=== PATIENT | female | born 1995 | race Caucasian/White ===

== ENCOUNTER 2017-11-25 17:00 | Inpatient (IN) | payer OTHER ==
[2017-11-25 18:14] LABS: HEMOGLOBIN 12.6 g/dl (12.0-15.5); MEAN CORPUSCULAR HEMOGLOBIN 31.3 pg (27.0-33.0); MEAN CORPUSCULAR VOLUME 89.3 fl (80.0-96.0); PLATELET COUNT, AUTOMATED 167 10^3/uL (150-450); RED BLOOD COUNT 4.03 10^6/uL (4.00-5.40); RED CELL DISTRIBUTION WIDTH 13.5 % (11.5-14.5); WHITE BLOOD COUNT 9.4 10^3/uL (4.0-10.0)
[2017-11-25] MEDS: LR 1,000 ML IV (18:33)
[2017-11-25] MEDS: OXYTOCIN DRIP 30 UNITS in APPROPRIATE DILUENT 1 EA IV (18:33)
[2017-11-25] MEDS ORDERED: ONDANSETRON 4MG/2ML VIAL (J2405) IV (21:45)
[2017-11-25] MEDS ORDERED: MEASLES,MUMPS,RUBELLA VACCINE INJ (MMR-II) (90707) SC (21:45)
[2017-11-25] MEDS ORDERED: PROMETHAZINE 25 MG TAB PO (21:45)
[2017-11-25] MEDS ORDERED: RHOGAM 300 MCG (1500 IU) INJ (J2790) IM (21:45)
[2017-11-25] MEDS ORDERED: DIBUCAINE 1% OINTMENT 30GM TOP (21:45)
[2017-11-26] MEDS ORDERED: OXYTOCIN 30 UNITS IN 0.9% NaCl 500ML IV BAG (J2590) As Ordered (00:20)
[2017-11-26] MEDS: METHYLERGONOVINE MALEATE 0.2 MG/ML VIAL (J2210) IM (00:55)
[2017-11-26] MEDS: OXYTOCIN DRIP 30 UNITS in APPROPRIATE DILUENT 1 EA IV (04:50)
[2017-11-26] MEDS: ACETAMINOPHEN 500 MG TAB PO (07:13)
[2017-11-26 07:39] LABS: HEMATOCRIT 29.3 % (36.0-47.0); MEAN CORPUSCULAR HGB CONC 34.8 g/dl (32.0-36.5); MEAN CORPUSCULAR VOLUME 89.1 fl (80.0-96.0); PLATELET COUNT, AUTOMATED 133 10^3/uL (150-450); RED BLOOD COUNT 3.29 10^6/uL (4.00-5.40); RED CELL DISTRIBUTION WIDTH 13.2 % (11.5-14.5); WHITE BLOOD COUNT 17.2 10^3/uL (4.0-10.0)
[2017-11-26 07:54] LABS: HEMOGLOBIN 10.2 g/dl (12.0-15.5)
[2017-11-26 08:02] LABS: ALBUMIN 2.3 GM/DL (3.2-5.2); ALBUMIN/GLOBULIN RATIO 0.72 (1.00-1.93); ALKALINE PHOSPHATASE 94 U/L (45-117); ALT/SGPT 13 U/L (12-78); ANION GAP 11 MEQ/L (8-16); AST/SGOT 27 U/L (7-37); BILIRUBIN,TOTAL 0.2 MG/DL (0.2-1.0); BLOOD UREA NITROGEN 9 MG/DL (7-18); CALCIUM LEVEL 7.8 MG/DL (8.5-10.1); CARBON DIOXIDE LEVEL 23 MEQ/L (21-32); CHLORIDE LEVEL 109 MEQ/L (98-107); CREATININE FOR GFR 0.62 MG/DL (0.55-1.30); GLOMERULAR FILTRATION RATE > 60.0 (>60); GLUCOSE, FASTING 105 MG/DL (70-100); LDH LACTATE DEHYDROGENASE 279 U/L (84-246); POTASSIUM SERUM 3.8 MEQ/L (3.5-5.1); SODIUM LEVEL 143 MEQ/L (136-145); TOTAL PROTEIN 5.5 GM/DL (6.4-8.2); URIC ACID 5.1 MG/DL (2.6-6.0)
[2017-11-26 08:53] LABS: TOTAL PROTEIN,RANDOM URINE 22.2 MG/DL (0.0-12.0)
[2017-11-26] MEDS: DOCUSATE SODIUM 100 MG CAP PO ×2 (09:00→20:44)
[2017-11-26] MEDS: PRENATAL VITAMINS CHEWABLE TABLET PO (09:00)
[2017-11-26] MEDS: IBUPROFEN 800 MG TAB PO (16:37)
[2017-11-27] MEDS: DOCUSATE SODIUM 100 MG CAP PO (08:12)
[2017-11-27] MEDS: PRENATAL VITAMINS CHEWABLE TABLET PO (08:12)
== END 2017-11-27 11:10 | disposition home or self-care (01) | DRG 775 ==
LOC: M LDI 17:00 → M OBS 11-26 00:04
PROVIDERS: Obstetrics & Gynecology
PROC: 10E0XZZ Delivery of Products of Conception, External Approach (ICD-10-PCS; principal; 2017-11-25)
PROC: 3E033VJ Introduction of Other Hormone into Peripheral Vein, Percutaneous Approach (ICD-10-PCS; 2017-11-25)
DX: O48.0 Post-term pregnancy (principal); Z37.0 Single live birth; Z3A.41 41 weeks gestation of pregnancy

== ENCOUNTER 2017-12-17 16:40 | Emergency (ER) | payer OTHER ==
[2017-12-17] MEDS: CEPHALEXIN 500 MG CAP PO (18:02)
== END 2017-12-17 18:06 | disposition home or self-care (01) ==
LOC: M ED 16:40
DX: N61.0 Mastitis without abscess (principal)
CPT/HCPCS: 99282

== ENCOUNTER 2018-05-10 17:36 | Emergency (ER) | payer OTHER ==
[~2018-05-10] VITALS: Ht 165.1 cm; Wt 59.1 kg
[~2018-05-10 17:36] MED LIST: ACET500T15 PO; COLA100C5 PO; DICL250C70 PO; IBUP1TAB7 PO; KEFL500C17 PO; PRENTAB9 PO
[2018-05-10 19:30] LABS: BASO % 0.2 % (0.0-1.0); EOS % 0.2 % (0.0-3.0); HEMATOCRIT 38.4 % (36.0-47.0); HEMOGLOBIN 12.5 g/dl (12.0-15.5); LYMPH # 1.6 10^3/uL (1.5-6.5); LYMPH % 14.6 % (24.0-44.0); MEAN CORPUSCULAR HGB CONC 32.6 g/dl (32.0-36.5); MEAN CORPUSCULAR VOLUME 85.9 fl (80.0-96.0); MONO # 0.4 10^3/uL (0.0-0.8); MONO % 3.4 % (0.0-5.0); NEUTROPHILS # 8.7 10^3/uL (1.8-7.7); NEUTROPHILS % 81.3 % (36.0-66.0); PLATELET COUNT, AUTOMATED 207 10^3/uL (150-450); RED BLOOD COUNT 4.47 10^6/uL (4.00-5.40); WHITE BLOOD COUNT 10.7 10^3/uL (4.0-10.0)
--- NOTE | 2018-05-10 19:48 | REPVR ---
EXAM: US First Trimester, Transabdominal EXAM DATE/TIME: 05/10/2018 6:29 PM CLINICAL HISTORY: 22 years old, female; Signs and symptoms; Lmp or gestational age (in weeks): 6; Antepartum complications; Bleeding; ; Additional info: Vaginal bleeding TECHNIQUE: Real-time transabdominal obstetrical ultrasound of the maternal pelvis and a first trimester , less than 14 weeks 0 days, with image documentation. COMPARISON: No relevant prior studies available. FINDINGS: GESTATION: Gestation: Single intrauterine gestation. Heart rate: 123 beats per minute. Placenta: Unremarkable. No subchorionic bleed. Amniotic fluid: Amniotic and chorionic fluid are normal for gestational age. BIOMETRY: Estimated gestational age: The mean sac diameter is 1.9 cm corresponding to gestational age of 6 weeks 2 days. The crown-rump length of the pole is 0.5 cm corresponding to a gestational age of 6 weeks 1 day. The average ultrasound age is 6 weeks one day with an estimated date of delivery of 01/02/19. MATERNAL: Uterus: The uterus measures 10.4 x 5.9 cm. Cervix: Unremarkable. Right adnexa: The right ovary measures 2.9 x 0.8 x 1.1 cm. Left adnexa: The left ovary measures 2.6 x 2.2 x 2.1 cm and contains a 1.5 cm complex cyst, likely a corpus luteal cyst. Intraperitoneal: No intraperitoneal free fluid. IMPRESSION: Single live intrauterine with a gestational age of 6 weeks and 1 day by ultrasound. Electronically signed by: Prudence Larry On 05/10/2018 19:47:53 PM
[2018-05-10 20:19] LABS: APPEARANCE, URINE CLEAR (CLEAR); BACTERIA, URINE AUTO NEGATIVE (NEGATIVE); BILIRUBIN, URINE AUTO NEGATIVE (NEGATIVE); BLOOD, URINE BLOOD 1+ (NEGATIVE); COLOR, URINE STRAW (YELLOW); GLUCOSE, URINE (UA) AUTO NEGATIVE (NEGATIVE); KETONE, URINE AUTO 1+ mg/dL (NEGATIVE); LEUKOCYTE ESTERASE, URINE AUTO NEGATIVE (NEGATIVE); NITRITE, URINE AUTO NEGATIVE (NEGATIVE); PROTEIN, URINE AUTO NEGATIVE (NEGATIVE); RBC, URINE AUTO 3 /HPF (0-3); SPECIFIC GRAVITY URINE AUTO 1.009 (1.002-1.035); SQUAMOUS EPITHELIAL CELL UR AU 0 /HPF (0-6); UROBILINOGEN, URINE AUTO 0.2 mg/dL (0.0-2.0); WBC, URINE AUTO 1 /HPF (0-3)
[2018-05-10 20:31] VITALS: BP 105/51
== END 2018-05-10 20:31 | disposition home or self-care (01) ==
LOC: M ED 17:36
DX: O20.9 Hemorrhage in early pregnancy, unspecified (principal); Z3A.01 Less than 8 weeks gestation of pregnancy

== ENCOUNTER 2018-10-04 09:36 | Outpatient (CLI) | payer OTHER ==
[~2018-10-04] VITALS: Ht 165.1 cm; Wt 70.1 kg
[~2018-10-04 09:36] MED LIST changes: +PREN27TA3 PO
[2018-10-04 09:55] VITALS: BP 139/78
[2018-10-04 10:40] LABS: APPEARANCE, URINE CLOUDY (CLEAR); BACTERIA, URINE AUTO 2+ (NEGATIVE); BILIRUBIN, URINE AUTO NEGATIVE (NEGATIVE); BLOOD, URINE BLOOD NEGATIVE (NEGATIVE); COLOR, URINE YELLOW (YELLOW); GLUCOSE, URINE (UA) AUTO NEGATIVE (NEGATIVE); KETONE, URINE AUTO NEGATIVE (NEGATIVE); LEUKOCYTE ESTERASE, URINE AUTO 3+ (NEGATIVE); NITRITE, URINE AUTO NEGATIVE (NEGATIVE); PROTEIN, URINE AUTO NEGATIVE (NEGATIVE); RBC, URINE AUTO 2 /HPF (0-3); SPECIFIC GRAVITY URINE AUTO 1.011 (1.002-1.035); SQUAMOUS EPITHELIAL CELL UR AU 27 /HPF (0-6); UROBILINOGEN, URINE AUTO 0.2 mg/dL (0.0-2.0); WBC, URINE AUTO 10 /HPF (0-3)
[2018-10-04 11:32] LABS: APPEARANCE, URINE CLEAR (CLEAR); BACTERIA, URINE AUTO NEGATIVE (NEGATIVE); BILIRUBIN, URINE AUTO NEGATIVE (NEGATIVE); BLOOD, URINE BLOOD NEGATIVE (NEGATIVE); COLOR, URINE STRAW (YELLOW); GLUCOSE, URINE (UA) AUTO NEGATIVE (NEGATIVE); KETONE, URINE AUTO NEGATIVE (NEGATIVE); LEUKOCYTE ESTERASE, URINE AUTO NEGATIVE (NEGATIVE); NITRITE, URINE AUTO NEGATIVE (NEGATIVE); PROTEIN, URINE AUTO NEGATIVE (NEGATIVE); RBC, URINE AUTO 0 /HPF (0-3); SPECIFIC GRAVITY URINE AUTO 1.004 (1.002-1.035); SQUAMOUS EPITHELIAL CELL UR AU 0 /HPF (0-6); UROBILINOGEN, URINE AUTO 0.2 mg/dL (0.0-2.0); WBC, URINE AUTO 0 /HPF (0-3)
--- NOTE | 2018-10-04 12:18 | IPNPDOC ---
Text Note Date of Service The patient was seen on 10/04/18. NOTE Triage Note Jazmyn is a 22yo with SIUP at 27+wk by 6wk u/s who presents to triage with CC of RUQ pain that is intermittent and "burning" in quality. She notes it comes on randomly, not associated with eating necessarily but sometimes can be worsened by eating. She notes it originally started in her upper right back and then migrated over. No other complaints. No burning with urination, no abnormal vaginal discharge. Feels good movement. Does not feel ctx, no lof, no vaginal bleeding. 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 No e/o UTI or pyelo. Vitals wnl, benign exam. Reassuring status. SCE cl/thick/high Plan: -safe for discharge home -keep next routine scheduled 28wk appt in clinic -continue to hydrate well -return precautions discussed Dr. Alexandria Huff MD A-FIB/CHADSVASC A-FIB History Current/History of A-Fib/PAF?: No Current Oral Anticoagulant The: No VS,Fishbone, I+O VS, Fishbone, I+O Vital Signs Date Time Temp Pulse Resp B/P (MAP) Pulse Ox O2 Delivery O2 Flow Rate FiO2 10/04/18 09:55 98.2 75 18 139/78 (98) Alexandria Huff MD October 04, 2018 12:18
== END 2018-10-04 11:20 | disposition home or self-care (01) ==
LOC: M LDO 09:36
PROVIDERS: ATTEND Obstetrics & Gynecology
DX: O26.893 Other specified pregnancy related conditions, third trimester (principal); R10.11 Right upper quadrant pain; Z3A.27 27 weeks gestation of pregnancy
CPT/HCPCS: 59025; 81001; G0378; G0463

== ENCOUNTER 2018-12-10 04:28 | Inpatient (IN) | payer OTHER ==
[~2018-12-10] VITALS: Ht 165.1 cm; Wt 72.7 kg
[2018-12-10] VITALS (10 sets, daily range): BP systolic 106–143; BP diastolic 60–93
[2018-12-10] MEDS ORDERED: OXYTOCIN 30 UNITS IN 0.9% NaCl 500ML IV BAG (J2590) As Ordered ONE (04:51)
[2018-12-10] MEDS ORDERED: PENICILLIN G POTASSIUM IV 5 MU in D5W MINI-BAG PLUS 100 ML IV STA (04:55)
[2018-12-10] MEDS ORDERED: LACTATED RINGER'S 1000 ML IV STA (04:55)
[2018-12-10] MEDS ORDERED: OXYTOCIN DRIP 30 UNITS in IV 1 EA IV SCH (05:21)
[2018-12-10] MEDS ORDERED: RHOGAM 300 MCG (1500 IU) INJ (J2790) IM SCH (05:30)
[2018-12-10] MEDS ORDERED: MEASLES,MUMPS,RUBELLA VACCINE INJ (MMR-II) (90707) SC SCH (05:30)
[2018-12-10] MEDS ORDERED: DIBUCAINE 1% OINTMENT 30GM TOP PRN (05:30)
[2018-12-10] MEDS ORDERED: ACETAMINOPHEN TAB 650MG DOSE (2X325MG) PO PRN (05:30)
[2018-12-10] MEDS ORDERED: PROMETHAZINE 25 MG TAB PO PRN (05:30)
[2018-12-10] MEDS ORDERED: DOCUSATE SODIUM 100 MG CAP PO PRN (05:30)
[2018-12-10] MEDS ORDERED: IBUPROFEN 600 MG TAB PO PRN (05:30)
[2018-12-10] MEDS ORDERED: ACETAMINOPHEN 500 MG TAB PO PRN (05:30)
--- NOTE | 2018-12-10 05:34 | DNPDOC ---
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 FINDINGS: Viable male , pending weight, Apgars 7/8, clear amniotic fluid DELIVERY SUMMARY: Jazmyn presented to L&D in fulminant labor at 9cm. I was called to the room immediately after her arrival to the unit. She underwent SROM, clear fluid, shortly after IV access was obtained and she felt a strong urge to push. Cervical exam was C/C/+1. The bed was broken down and she was prepped for delivery. PCN for was ordered for GBS UNK but could not be given in time. With excellent maternal pushing effort her delivered. Presentation was direct OP and shoulders delivered transverse followed easily by the remainder of the body. The was dried and stimulated on the field and a bulb suction was used. The cried vigorously and was then placed on the maternal abdomen. The three vessel cord was then clamped and cut by me after appropriate time delay. 3rd stage was completed with gentle traction on the c ord and it was productive of an intact placenta. The uterine fundus was firmed with massage and pitocin was administered IV bolus. inspection of the vagina, cervix, and perineum revealed no lacerations. Sponge, instrument, and needle counts were correct X2. Mother stable when I left the room. DO TAMMI Desir CHRISTOPHER J. DO Dec 10, 2018 05:34
--- NOTE | 2018-12-10 05:37 | HPEPDOC ---
Obstetrical History & Physical General Date of Admission Dec 10, 2018 at 04:46 History of Present Illness Jazmyn presented to L&D at 36+5 weeks gestation by 6+1 week US on 10May2018 in fulminant labor and delivered her shortly after arrival. is uncomplicated. 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 Last delivery ) Type of Delivery: Spontaneous Vaginal Del. 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: No pertinent history Past Medical History Medical History Denies Surgical History: Other (Ear tubes) Family History Significant Family History: No pertinent family hx Social History Marital Status: Family situation: Spouse/partner home Psychosocial History: No pertinent psych hx * Smoker: non-smoker Alcohol: Denies Drugs: denies Imunizations Tdap status: current Influenza Status: current Allergies Coded Allergies: No Known Allergies (Unverified , 11/25/17) Medications Scheduled Pnv,Calcium 72/Iron/Folic Acid ( Vitamin Plus Low Iron) 1 Tab Tab, PO DAILY Physical Examination Physical Examination GENERAL: Alert and oriented times three. ABDOMEN: Gravid and non-tender to touch. FETUS: Is vertex (VTX) by sterile vaginal examination (SVE) EXTREMITIES: No edema. Pertinent Laboratoy Data Blood Type: AB+ RBC Antibody Screen: Positive HIV: Negative Hepatitis B: Negative Hepatitis C: Unknown Rapid Plasma Reagin: Nonreactive Rubella: Immune Varicella: Immune Chlamydia/Gonorrhea: Negative Group B Streptococcus: Unknown Quad Screen Test: Unknown (Had low risk cff DNA genetic screening) Cystic Fibrosis: Positive (FOB tested and negative) Glucose Tolerance Test: 73 Anatomy Ultrasound Placenta Location: Posterior Normal Anatomy: Yes Placenta Previa: No Steroid Therapy Steroid Therapy: No Vaginal Examination Dilation: 9 cm Effacement: 100% Station: +1 Cervical Consistency: Soft Cervical Position: Anterior Presentation: Cephalic presentation Position: Vertex (occiput) Assessment Heart Rate (FHR): 155 Variability: Moderate Accelerations: Positive Decelerations: Variable Tocometer Contractions: Yes Duration: greater than 60 seconds Strength: palpated as strong Assessment/Plan Assessment 23 yo at 36+5 weeks gestation presented in fulminant labor and delivered her shortly after arrival. Plan Patient delivered shortly after arrival before H+P could be completed. See delivery note for details. Neither PCN nor BTMZ could be given in time before delivery. Plan for routine recovery and care after delivery. DO TAMMI Desir CHRISTOPHER J. DO Dec 10, 2018 05:37
[2018-12-10] MEDS: IBUPROFEN 800 MG TAB PO PRN ×3 (05:55→23:19)
[2018-12-10 05:59] LABS: HEMATOCRIT 35.6 % (36.0-47.0); HEMOGLOBIN 11.3 g/dl (12.0-15.5); MEAN CORPUSCULAR HEMOGLOBIN 26.1 pg (27.0-33.0); MEAN CORPUSCULAR HGB CONC 31.7 g/dl (32.0-36.5); MEAN CORPUSCULAR VOLUME 82.2 fl (80.0-96.0); PLATELET COUNT, AUTOMATED 171 10^3/uL (150-450); RED BLOOD COUNT 4.33 10^6/uL (4.00-5.40); WHITE BLOOD COUNT 12.6 10^3/uL (4.0-10.0)
[2018-12-10] MEDS ORDERED: PENICILLIN G POTASSIUM IV 2.5 MU in IV 1 EA IV SCH (09:00)
[2018-12-10] MEDS: PRENATAL VITAMINS CHEWABLE TABLET PO SCH (09:02)
[2018-12-11 06:31] VITALS: BP 116/68
[2018-12-11] MEDS: PRENATAL VITAMINS CHEWABLE TABLET PO SCH (09:22)
[2018-12-11] MEDS ORDERED: IBUP-1022 PO (10:29)
[2018-12-11 18:12] VITALS: BP 114/60
[2018-12-11] MEDS: IBUPROFEN 800 MG TAB PO PRN (20:13)
[2018-12-12 06:30] VITALS: BP 122/77
[2018-12-12] MEDS: PRENATAL VITAMINS CHEWABLE TABLET PO SCH (08:41)
--- NOTE | 2018-12-12 08:57 | DS.PDOC ---
Discharge Summary General Date of Admission Dec 10, 2018 at 04:46 Date of Discharge December 12, 2018 Discharge Summary HOSPITAL COURSE: Ms. Yoo is a 23 yo G3 now P3 who underwent an uncomplicated on 10Dec2018 after being admitted for active labor. Her course was unremarkable. On her day day of discharge she met all appropriate discharge criteria. She was ambulating, voiding, tolerating a regular diet, and had minimal lochia. DISCHARGE MEDICATIONS: Please see below. ALLERGIES: Please see below. PHYSICAL EXAMINATION ON DISCHARGE: VITAL SIGNS: Please see below. GENERAL: AAOX3, sitting up in bed, NAD, pleasant and conversant PSYCH: Affect appropriate LABORATORY DATA: Please see below. ACTIVITY: Pelvic rest DIET: Regular DISCHARGE PLAN: Discharge home DISPOSITION: Discharge home. DISCHARGE INSTRUCTIONS: 1. Pelvic rest for 6 weeks ITEMS TO FOLLOWUP ON ON OUTPATIENT: 1. visit DISCHARGE CONDITION: Stable. TIME SPENT ON DISCHARGE: Greater than 20 minutes. DO Casey Vital Signs/I&Os Vital Signs Date Time Temp Pulse Resp B/P (MAP) Pulse Ox O2 Delivery O2 Flow Rate FiO2 12/12/18 06:30 98.5 67 18 122/77 (92) Discharge Medications Scheduled Pnv,Calcium 72/Iron/Folic Acid ( Vitamin Plus Low Iron) 1 Tab Tab, PO DAILY, (Reported) Scheduled PRN Ibuprofen (Ibuprofen) 600 Mg Tablet, 600 MG PO Q6HP PRN for PAIN SCALE 1-5 Allergies Coded Allergies: No Known Allergies (Unverified , 11/25/17) BIRGIT CADENA DO Dec 12, 2018 08:57
== END 2018-12-12 12:11 | disposition home or self-care (01) | DRG 807 ==
LOC: M LDO 04:28 → M LDI 04:46 → M OBS 08:01
PROVIDERS: ADMIT Obstetrics & Gynecology; ATTEND Obstetrics & Gynecology
PROC: 10E0XZZ Delivery of Products of Conception, External Approach (ICD-10-PCS; principal; 2018-12-10)
DX: O60.14X0 Preterm labor third trimester with preterm delivery third trimester, not applicable or unspecified (principal); Z37.0 Single live birth; Z3A.36 36 weeks gestation of pregnancy; O62.3 Precipitate labor

== ENCOUNTER 2020-09-23 09:52 | Emergency (ER) | payer OTHER ==
[~2020-09-23] VITALS: Ht 165.1 cm; Wt 59.1 kg
[~2020-09-23 09:52] MED LIST changes: +IBUP-1022 PO
[2020-09-23 11:00] LABS: HCG, SERUM QUANTITATIVE 16 MIU/ML
[2020-09-23 11:16] LABS: BLOOD UREA NITROGEN 15 MG/DL (7-18); CALCIUM LEVEL 8.8 MG/DL (8.5-10.1); CARBON DIOXIDE LEVEL 25 MEQ/L (21-32); CHLORIDE LEVEL 109 MEQ/L (98-107); GLOMERULAR FILTRATION RATE > 60.0 (>60); GLUCOSE, FASTING 76 MG/DL (70-100); POTASSIUM SERUM 3.9 MEQ/L (3.5-5.1); SODIUM LEVEL 141 MEQ/L (136-145)
--- NOTE | 2020-09-23 12:38 | REP ---
INDICATION: spotting, positive hcg COMPARISON: None. TECHNIQUE: Transabdominal and transvaginal 1st trimester obstetrical ultrasound with color Doppler evaluation FINDINGS: Anteverted uterus measures 8.0 x 4.8 x 6.3 cm. The endometrial complex measures 10 mm in width without evidence for intrauterine . Bilateral ovaries are normal in appearance and vascularity. Right ovary measures 2.3 x 1.8 x 2.1 cm (RI 0.54) including 2 cm right corpus luteum cyst. Left ovary measures 2.7 x 1.2 x 2.5 cm (RI 0.62). IMPRESSION: No evidence for intrauterine . Differential diagnosis includes early as well as missed . Correlation with serial HCG levels recommended along with repeat ultrasound as necessary. As always, ectopic cannot definitively be excluded. <Electronically signed by Jesus Santiago > 09/23/20 [id number]
[2020-09-23 13:24] LABS: BASO % 0.4 % (0.0-1.0); EOS % 0.4 % (0.0-3.0); HEMATOCRIT 44.7 % (36.0-47.0); HEMOGLOBIN 14.6 g/dl (12.0-15.5); LYMPH # 1.4 10^3/uL (1.5-5.0); LYMPH % 20.6 % (24.0-44.0); MEAN CORPUSCULAR HEMOGLOBIN 29.3 pg (27.0-33.0); MEAN CORPUSCULAR HGB CONC 32.7 g/dl (32.0-36.5); MEAN CORPUSCULAR VOLUME 89.8 fl (80.0-96.0); MONO # 0.3 10^3/uL (0.0-0.8); MONO % 3.9 % (2.0-8.0); NEUTROPHILS % 74.6 % (36.0-66.0); PLATELET COUNT, AUTOMATED 211 10^3/uL (150-450); RED BLOOD COUNT 4.98 10^6/uL (4.00-5.40); WHITE BLOOD COUNT 6.7 10^3/uL (4.0-10.0)
[2020-09-23 14:04] VITALS: BP 120/67
== END 2020-09-23 14:11 | disposition home or self-care (01) ==
LOC: M ED 09:52
DX: O20.0 Threatened abortion (principal); O20.8 Other hemorrhage in early pregnancy; O26.891 Other specified pregnancy related conditions, first trimester; Z32.01 Encounter for pregnancy test, result positive

== ENCOUNTER → 2020-09-27 | Outpatient (CLI) | payer OTHER | LOC: M LAB 12:04 | PROVIDERS: ATTEND Physician Assistant | DX: O20.9 Hemorrhage in early pregnancy, unspecified (principal) ==

== ENCOUNTER 2020-10-02 11:23 | Emergency (ER) | payer OTHER ==
[~2020-10-02] VITALS: Ht 165.1 cm; Wt 59.1 kg
[2020-10-02] MEDS ORDERED: PREN1CHW6 PO (11:30)
[2020-10-02 13:08] LABS: APPEARANCE, URINE CLEAR (CLEAR); BACTERIA, URINE AUTO NEGATIVE (NEGATIVE); BILIRUBIN, URINE AUTO NEGATIVE (NEGATIVE); BLOOD, URINE BLOOD 2+ (NEGATIVE); COLOR, URINE COLORLESS (YELLOW); GLUCOSE, URINE (UA) AUTO NEGATIVE (NEGATIVE); KETONE, URINE AUTO NEGATIVE (NEGATIVE); LEUKOCYTE ESTERASE, URINE AUTO NEGATIVE (NEGATIVE); NITRITE, URINE AUTO NEGATIVE (NEGATIVE); PROTEIN, URINE AUTO NEGATIVE (NEGATIVE); RBC, URINE AUTO 0 /HPF (0-3); SQUAMOUS EPITHELIAL CELL UR AU 0 /HPF (0-6); UROBILINOGEN, URINE AUTO 0.2 mg/dL (0.0-2.0); WBC, URINE AUTO 0 /HPF (0-3)
[2020-10-02 13:52] LABS: BASO % 0.3 % (0.0-1.0); EOS % 0.2 % (0.0-3.0); HEMATOCRIT 40.3 % (36.0-47.0); HEMOGLOBIN 13.3 g/dl (12.0-15.5); LYMPH % 9.2 % (24.0-44.0); MEAN CORPUSCULAR HEMOGLOBIN 29.5 pg (27.0-33.0); MEAN CORPUSCULAR VOLUME 89.4 fl (80.0-96.0); MONO # 0.5 10^3/uL (0.0-0.8); MONO % 4.3 % (2.0-8.0); NEUTROPHILS # 9.2 10^3/uL (1.5-8.5); NEUTROPHILS % 85.6 % (36.0-66.0); PLATELET COUNT, AUTOMATED 180 10^3/uL (150-450); RED BLOOD COUNT 4.51 10^6/uL (4.00-5.40); WHITE BLOOD COUNT 10.7 10^3/uL (4.0-10.0)
--- NOTE | 2020-10-02 14:27 | REP ---
INDICATION: vaginal bleeding, first trimester. COMPARISON: 09/23/2020. TECHNIQUE: Real-time sonographic evaluation of pelvis performed utilizing transabdominal and endovaginal technique. FINDINGS: Uterus measures 9.9 x 4.6 x 6.0 cm. Endometrial thickness is 11 mm. There is no intrauterine gestational sac identified. Right ovary measures 2.1 x 1.7 x 2.2 cm and left ovary 2.3 x 1.9 x 1.9 cm. There is no evidence of ovarian torsion bilaterally with duplex Doppler evaluation, resistive index right ovary 0.55 and left 0.50. There is no adnexal mass. There is no free fluid. IMPRESSION: Negative pelvic ultrasound. No intrauterine gestation. No adnexal mass or free fluid. Differential diagnosis would include very early intrauterine , missed AB, or ectopic . Suggest correlation with serial quantitative beta HCG values, and follow-up ultrasound if necessary. <Electronically signed by Ed Marcos > 10/02/20 [id number]
[2020-10-02 14:47] VITALS: BP 144/78
== END 2020-10-02 14:49 | disposition home or self-care (01) ==
LOC: M ED 11:23
DX: O20.0 Threatened abortion (principal)
CPT/HCPCS: 76801; 76817; 81001; 84702; 85025; 93976; 99284; U0002

== ENCOUNTER → 2020-10-05 | Outpatient (REF) | payer OTHER ==
[~2020-10-05] MED LIST changes: +PREN1CHW6 PO
== END ==
LOC: M LAB REF 12:04
PROVIDERS: ATTEND Advanced Practice Midwife
DX: O02.1 Missed abortion (principal)

== ENCOUNTER → 2022-09-10 | Outpatient (REF) | payer OTHER | LOC: M LAB REF 16:35 | PROVIDERS: ATTEND Physician Assistant | DX: J02.9 Acute pharyngitis, unspecified (principal) ==

== ENCOUNTER 2022-11-05 18:23 | Emergency (ER) | payer OTHER ==
[~2022-11-05] VITALS: Ht 165.1 cm; Wt 66.1 kg
[2022-11-05 18:57] LABS: HEMATOCRIT 43.1 % (36.0-47.0); HEMOGLOBIN 14.4 g/dl (12.0-15.5); MEAN CORPUSCULAR HEMOGLOBIN 28.9 pg (27.0-33.0); MEAN CORPUSCULAR HGB CONC 33.4 g/dl (32.0-36.5); MEAN CORPUSCULAR VOLUME 86.4 fl (80.0-96.0); PLATELET COUNT, AUTOMATED 242 10^3/uL (150-450); RED BLOOD COUNT 4.99 10^6/uL (4.00-5.40); WHITE BLOOD COUNT 10.2 10^3/uL (4.0-10.0)
[2022-11-05 19:24] LABS: BLOOD UREA NITROGEN 11 MG/DL (9-23); CALCIUM LEVEL 9.1 MG/DL (8.5-10.1); CARBON DIOXIDE LEVEL 28 MMOL/L (20-31); CHLORIDE LEVEL 102 MMOL/L (98-107); CREATININE FOR GFR 0.76 MG/DL (0.55-1.30); GLOMERULAR FILTRATION RATE > 60.0 (>60); GLUCOSE, FASTING 99 MG/DL (60-100); POTASSIUM SERUM 3.8 MMOL/L (3.5-5.1); SODIUM LEVEL 138 MMOL/L (136-145)
[2022-11-05 21:40] VITALS: BP 127/64; TEMP 97.7; O2SAT 99
== END 2022-11-05 21:42 | disposition home or self-care (01) ==
LOC: M ED 18:23
DX: R55 Syncope and collapse (principal); R42 Dizziness and giddiness

== ENCOUNTER → 2022-11-12 | Outpatient (CLI) | payer OTHER ==
[2022-11-12 14:31] LABS: BASO % 0.6 % (0.0-1.0); EOS # 0.1 10^3/uL (0.0-0.5); HEMATOCRIT 41.8 % (36.0-47.0); HEMOGLOBIN 13.7 g/dl (12.0-15.5); LYMPH # 2.5 10^3/uL (1.5-5.0); LYMPH % 40.5 % (24.0-44.0); MEAN CORPUSCULAR HGB CONC 32.8 g/dl (32.0-36.5); MEAN CORPUSCULAR VOLUME 88.6 fl (80.0-96.0); MONO # 0.4 10^3/uL (0.0-0.8); MONO % 6.4 % (2.0-8.0); NEUTROPHILS # 3.2 10^3/uL (1.5-8.5); NEUTROPHILS % 51.2 % (36.0-66.0); PLATELET COUNT, AUTOMATED 203 10^3/uL (150-450); RED BLOOD COUNT 4.72 10^6/uL (4.00-5.40); WHITE BLOOD COUNT 6.2 10^3/uL (4.0-10.0)
[2022-11-12 14:36] LABS: ALBUMIN 4.2 G/DL (3.2-5.2); ALKALINE PHOSPHATASE 48 U/L (46-116); ALT/SGPT 14 U/L (7.0-40); AST/SGOT 8 U/L (<34); BILIRUBIN,TOTAL 0.3 MG/DL (0.3-1.2); BLOOD UREA NITROGEN 12 MG/DL (9-23); CALCIUM LEVEL 9.8 MG/DL (8.5-10.1); CARBON DIOXIDE LEVEL 24 MMOL/L (20-31); CHLORIDE LEVEL 107 MMOL/L (98-107); CREATININE FOR GFR 0.78 MG/DL (0.55-1.30); FREE T3 3.9 PG/ML (2.3-4.2); GLOMERULAR FILTRATION RATE > 60.0 (>60); GLUCOSE, FASTING 96 MG/DL (60-100); POTASSIUM SERUM 3.7 MMOL/L (3.5-5.1); SODIUM LEVEL 139 MMOL/L (136-145); THYROID STIMULATING HORMONE 2.548 uIU/ML (0.55-4.78); TOTAL PROTEIN 7.2 G/DL (5.7-8.2)
[2022-11-12 14:37] LABS: FREE T4 1.15 NG/DL (0.89-1.76)
== END ==
LOC: M WUC 09:24
PROVIDERS: ATTEND Nurse Practitioner Family
DX: E04.0 Nontoxic diffuse goiter (principal); R00.2 Palpitations; R07.1 Chest pain on breathing

== ENCOUNTER 2023-02-24 08:49 | Emergency (ER) | payer OTHER ==
[~2023-02-24] VITALS: Ht 165.1 cm; Wt 65.5 kg
[~2023-02-24 08:49] MED LIST changes: +MECL-209 PO; +ONDA4TAB6 PO
[2023-02-24 08:50] VITALS: TEMP 98.4
[2023-02-24 09:33] LABS: BASO % 0.4 % (0.0-1.0); EOS # 0.1 10^3/uL (0.0-0.5); EOS % 0.7 % (0.0-3.0); HEMATOCRIT 43.3 % (36.0-47.0); HEMOGLOBIN 14.8 g/dl (12.0-15.5); LYMPH # 1.7 10^3/uL (1.5-5.0); LYMPH % 23.4 % (24.0-44.0); MEAN CORPUSCULAR HEMOGLOBIN 30.1 pg (27.0-33.0); MEAN CORPUSCULAR HGB CONC 34.2 g/dl (32.0-36.5); MEAN CORPUSCULAR VOLUME 88.2 fl (80.0-96.0); MONO # 0.3 10^3/uL (0.0-0.8); MONO % 4.1 % (2.0-8.0); NEUTROPHILS # 5.2 10^3/uL (1.5-8.5); NEUTROPHILS % 71.3 % (36.0-66.0); PLATELET COUNT, AUTOMATED 186 10^3/uL (150-450); RED BLOOD COUNT 4.91 10^6/uL (4.00-5.40); WHITE BLOOD COUNT 7.3 10^3/uL (4.0-10.0)
[2023-02-24] MEDS ORDERED: NS 1,000 ML IV ONE (12:25)
[2023-02-24 13:36] LABS: RSV AMPLIFICATION NEGATIVE (NEGATIVE)
[2023-02-24 15:55] VITALS: O2SAT 98
[2023-02-24 16:08] VITALS: BP 125/70
== END 2023-02-24 16:14 | disposition home or self-care (01) ==
LOC: M ED 08:49
DX: I95.1 Orthostatic hypotension (principal); Z79.83 Long term (current) use of bisphosphonates; Z79.899 Other long term (current) drug therapy

== ENCOUNTER → 2023-04-07 | Outpatient (REF) | payer OTHER | LOC: M LAB REF 16:28 | PROVIDERS: ATTEND Physician Assistant Medical | DX: A09 Infectious gastroenteritis and colitis, unspecified (principal) ==

== ENCOUNTER 2023-05-09 12:13 | Emergency (ER) | payer OTHER ==
[~2023-05-09] VITALS: Ht 165.1 cm; Wt 65.6 kg
[2023-05-09 13:16] LABS: BASO % 0.5 % (0.0-1.0); EOS # 0.1 10^3/uL (0.0-0.5); EOS % 0.8 % (0.0-3.0); HEMATOCRIT 39.9 % (36.0-47.0); HEMOGLOBIN 13.6 g/dl (12.0-15.5); LYMPH # 1.7 10^3/uL (1.5-5.0); LYMPH % 22.7 % (24.0-44.0); MEAN CORPUSCULAR HEMOGLOBIN 30.1 pg (27.0-33.0); MEAN CORPUSCULAR HGB CONC 34.1 g/dl (32.0-36.5); MEAN CORPUSCULAR VOLUME 88.3 fl (80.0-96.0); MONO # 0.4 10^3/uL (0.0-0.8); MONO % 4.8 % (2.0-8.0); NEUTROPHILS # 5.2 10^3/uL (1.5-8.5); NEUTROPHILS % 70.8 % (36.0-66.0); PLATELET COUNT, AUTOMATED 209 10^3/uL (150-450); RED BLOOD COUNT 4.52 10^6/uL (4.00-5.40); WHITE BLOOD COUNT 7.4 10^3/uL (4.0-10.0)
[2023-05-09 13:38] LABS: CK-MB VALUE MASS < 1.0 NG/ML (<3.6)
[2023-05-09 13:41] LABS: CPK CREATINE PHOSPHOKINASE 77 U/L (34-145); MB/CK RELATIVE INDEX 1.29 (< OR =4)
[2023-05-09 14:29] VITALS: BP 112/69; TEMP 99.2; O2SAT 98
== END 2023-05-09 14:32 | disposition home or self-care (01) ==
LOC: M ED 12:13
DX: R07.89 Other chest pain (principal)

== ENCOUNTER 2023-05-13 16:33 | Emergency (ER) | payer OTHER ==
[~2023-05-13] VITALS: Ht 165.1 cm; Wt 65.5 kg
[2023-05-13 19:03] LABS: BASO # 0.1 10^3/uL (0.0-0.2); BASO % 0.5 % (0.0-1.0); EOS # 0.1 10^3/uL (0.0-0.5); EOS % 0.6 % (0.0-3.0); HEMATOCRIT 42.4 % (36.0-47.0); HEMOGLOBIN 14.6 g/dl (12.0-15.5); LYMPH # 2.5 10^3/uL (1.5-5.0); LYMPH % 23.9 % (24.0-44.0); MEAN CORPUSCULAR HGB CONC 34.4 g/dl (32.0-36.5); MEAN CORPUSCULAR VOLUME 87.1 fl (80.0-96.0); MONO # 0.4 10^3/uL (0.0-0.8); MONO % 3.8 % (2.0-8.0); NEUTROPHILS # 7.4 10^3/uL (1.5-8.5); NEUTROPHILS % 70.9 % (36.0-66.0); PLATELET COUNT, AUTOMATED 239 10^3/uL (150-450); RED BLOOD COUNT 4.87 10^6/uL (4.00-5.40); WHITE BLOOD COUNT 10.4 10^3/uL (4.0-10.0)
[2023-05-13 19:22] LABS: ALBUMIN 4.5 G/DL (3.2-5.2); BILIRUBIN,DIRECT 0.1 MG/DL (<0.4); BILIRUBIN,TOTAL 0.4 MG/DL (0.3-1.2); TOTAL PROTEIN 7.7 G/DL (5.7-8.2)
[2023-05-13] MEDS ORDERED: ISOVUE-370 76% 100ML VIAL As Ordered ONE (19:49)
[2023-05-13] MEDS ORDERED: ONDA4TAB6 PO (21:06)
[2023-05-13 21:17] VITALS: BP 118/74; TEMP 98.3; O2SAT 100
== END 2023-05-13 21:18 | disposition home or self-care (01) ==
LOC: M ED 16:33
DX: R10.9 Unspecified abdominal pain (principal); H81.4 Vertigo of central origin; Z79.83 Long term (current) use of bisphosphonates
CPT/HCPCS: 36415; 74177; 76830; 76856; 80047; 80076; 81001; 83690; 84702; 85025; 87086; 93976; 99284; Q9967

== ENCOUNTER → 2023-06-12 | Outpatient (REF) | payer OTHER ==
[2023-06-12 18:47] LABS: BASO # 0.1 10^3/uL (0.0-0.2); BASO % 0.6 % (0.0-1.0); EOS # 0.1 10^3/uL (0.0-0.5); EOS % 0.6 % (0.0-3.0); HEMATOCRIT 42.3 % (36.0-47.0); HEMOGLOBIN 14.4 g/dl (12.0-15.5); LYMPH # 1.8 10^3/uL (1.5-5.0); LYMPH % 21.5 % (24.0-44.0); MEAN CORPUSCULAR VOLUME 88.1 fl (80.0-96.0); MONO # 0.4 10^3/uL (0.0-0.8); MONO % 4.3 % (2.0-8.0); NEUTROPHILS # 6.1 10^3/uL (1.5-8.5); NEUTROPHILS % 72.1 % (36.0-66.0); PLATELET COUNT, AUTOMATED 223 10^3/uL (150-450); WHITE BLOOD COUNT 8.5 10^3/uL (4.0-10.0)
[2023-06-12 18:55] LABS: ALBUMIN 4.1 G/DL (3.2-5.2); ALKALINE PHOSPHATASE 64 U/L (46-116); ALT/SGPT 62 U/L (7.0-40); AST/SGOT 20 U/L (<34); BILIRUBIN,TOTAL 0.3 MG/DL (0.3-1.2); BLOOD UREA NITROGEN 13 MG/DL (9-23); CALCIUM LEVEL 9.2 MG/DL (8.5-10.1); CARBON DIOXIDE LEVEL 27 MMOL/L (20-31); CHLORIDE LEVEL 105 MMOL/L (98-107); CREATININE FOR GFR 0.65 MG/DL (0.55-1.30); FREE T4 1.04 NG/DL (0.89-1.76); GLOMERULAR FILTRATION RATE > 60.0 (>60); GLUCOSE, FASTING 84 MG/DL (60-100); POTASSIUM SERUM 4.4 MMOL/L (3.5-5.1); SODIUM LEVEL 137 MMOL/L (136-145); THYROID PEROXIDASE ANTIBODY 34 U/ML (<60.0); TOTAL PROTEIN 7.5 G/DL (5.7-8.2)
[2023-06-12 18:56] LABS: THYROID STIMULATING HORMONE 1.488 uIU/ML (0.55-4.78)
== END ==
LOC: M LAB REF 17:45
PROVIDERS: ATTEND Pediatrics
DX: E04.9 Nontoxic goiter, unspecified (principal)

== ENCOUNTER → 2023-06-24 | Outpatient (CLI) | payer OTHER | LOC: M RAD 13:30 | PROVIDERS: ATTEND Pediatrics | DX: E04.9 Nontoxic goiter, unspecified (principal) ==

== ENCOUNTER → 2023-07-31 | Outpatient (REF) | payer OTHER | LOC: M SFHCWAGY 18:15 | PROVIDERS: ATTEND Nurse Practitioner Family | DX: Z12.4 Encounter for screening for malignant neoplasm of cervix (principal); R87.610 Atypical squamous cells of undetermined significance on cytologic smear of cervix (ASC-US) ==

== ENCOUNTER → 2023-08-26 | Outpatient (REF) | payer OTHER ==
[2023-08-26 17:40] LABS: ALBUMIN 4.3 G/DL (3.2-5.2); BILIRUBIN,DIRECT 0.1 MG/DL (<0.4); BILIRUBIN,TOTAL 0.4 MG/DL (0.3-1.2); TOTAL PROTEIN 7.3 G/DL (5.7-8.2)
== END ==
LOC: M LAB REF 16:30
PROVIDERS: ATTEND Pediatrics
DX: R74.01 Elevation of levels of liver transaminase levels (principal)

== ENCOUNTER → 2023-09-03 | Outpatient (REF) | payer OTHER ==
[2023-09-03 16:01] LABS: APPEARANCE, URINE CLEAR (CLEAR); BACTERIA, URINE AUTO NEGATIVE (NEGATIVE); BILIRUBIN, URINE AUTO NEGATIVE (NEGATIVE); BLOOD, URINE BLOOD 1+ (NEGATIVE); COLOR, URINE COLORLESS (YELLOW); GLUCOSE, URINE (UA) AUTO NEGATIVE (NEGATIVE); KETONE, URINE AUTO NEGATIVE (NEGATIVE); LEUKOCYTE ESTERASE, URINE AUTO TRACE (NEGATIVE); NITRITE, URINE AUTO NEGATIVE (NEGATIVE); PROTEIN, URINE AUTO NEGATIVE (NEGATIVE); RBC, URINE AUTO 1 /HPF (0-3); SPECIFIC GRAVITY URINE AUTO 1.002 (1.002-1.035); SQUAMOUS EPITHELIAL CELL UR AU 2 /HPF (0-6); UROBILINOGEN, URINE AUTO 0.2 mg/dL (0.0-2.0); WBC, URINE AUTO 2 /HPF (0-3)
== END ==
LOC: M PLALAB 14:05
PROVIDERS: ATTEND Advanced Practice Midwife
DX: R87.610 Atypical squamous cells of undetermined significance on cytologic smear of cervix (ASC-US) (principal); R87.810 Cervical high risk human papillomavirus (HPV) DNA test positive; R30.0 Dysuria

== ENCOUNTER 2023-10-30 16:39 | Emergency (ER) | payer OTHER ==
[~2023-10-30] VITALS: Ht 165.1 cm; Wt 69.3 kg
[~2023-10-30 16:39] MED LIST changes: -DICL250C70 PO; +DICL250C72 PO; +ONDA-282 PO; -ONDA4TAB6 PO
[2023-10-30 18:04] LABS: BASO % 0.3 % (0.0-1.0); EOS % 0.3 % (0.0-3.0); HEMOGLOBIN 13.3 g/dl (12.0-15.5); LYMPH # 1.1 10^3/uL (1.5-5.0); LYMPH % 10.9 % (24.0-44.0); MEAN CORPUSCULAR HEMOGLOBIN 30.4 pg (27.0-33.0); MONO # 0.8 10^3/uL (0.0-0.8); MONO % 7.8 % (2.0-8.0); NEUTROPHILS # 7.7 10^3/uL (1.5-8.5); NEUTROPHILS % 80.4 % (36.0-66.0); PLATELET COUNT, AUTOMATED 178 10^3/uL (150-450); RED BLOOD COUNT 4.37 10^6/uL (4.00-5.40); WHITE BLOOD COUNT 9.6 10^3/uL (4.0-10.0)
[2023-10-30 18:22] LABS: CK-MB VALUE MASS < 1.0 NG/ML (<3.6)
[2023-10-30 18:23] LABS: BLOOD UREA NITROGEN 11 MG/DL (9-23); CALCIUM LEVEL 9.3 MG/DL (8.5-10.1); CARBON DIOXIDE LEVEL 22 MMOL/L (20-31); CHLORIDE LEVEL 106 MMOL/L (98-107); CREATININE FOR GFR 0.58 MG/DL (0.55-1.30); GLOMERULAR FILTRATION RATE > 60.0 (>60); GLUCOSE, FASTING 94 MG/DL (60-100); POTASSIUM SERUM 3.8 MMOL/L (3.5-5.1); SODIUM LEVEL 138 MMOL/L (136-145)
[2023-10-30 18:25] LABS: THYROID STIMULATING HORMONE 1.223 uIU/ML (0.55-4.78)
[2023-10-30 18:36] LABS: CPK CREATINE PHOSPHOKINASE 57 U/L (34-145); HCG, SERUM QUANTITATIVE 14071.3 MIU/ML (<4.2); MB/CK RELATIVE INDEX 1.75 (< OR =4)
[2023-10-30] MEDS: NS 1,000 ML IV ONE (20:06)
[2023-10-30] MEDS ORDERED: HOLTER MONITOR XX (22:08)
[2023-10-30 22:19] VITALS: BP 121/65; TEMP 97.9; O2SAT 99
== END 2023-10-30 22:21 | disposition home or self-care (01) ==
LOC: M ED 16:39
DX: O99.411 Diseases of the circulatory system complicating pregnancy, first trimester (principal); R00.2 Palpitations; G90.A Postural orthostatic tachycardia syndrome [POTS]; E28.2 Polycystic ovarian syndrome; Z3A.01 Less than 8 weeks gestation of pregnancy

== ENCOUNTER → 2023-11-03 | Outpatient (CLI) | payer OTHER ==
[~2023-11-03] MED LIST changes: +HOLTER MONITOR XX
== END ==
LOC: M EKG 13:00
PROVIDERS: ATTEND Physician Assistant Medical
DX: R00.2 Palpitations (principal); Z53.9 Procedure and treatment not carried out, unspecified reason

== ENCOUNTER 2023-11-29 14:38 | Emergency (ER) | payer OTHER ==
[~2023-11-29] VITALS: Ht 165.1 cm; Wt 69.7 kg
[2023-11-29 15:31] LABS: BASO % 0.5 % (0.0-1.0); EOS # 0.1 10^3/uL (0.0-0.5); EOS % 0.7 % (0.0-3.0); HEMATOCRIT 41.8 % (36.0-47.0); HEMOGLOBIN 14.1 g/dl (12.0-15.5); LYMPH # 1.6 10^3/uL (1.5-5.0); LYMPH % 18.5 % (24.0-44.0); MEAN CORPUSCULAR HEMOGLOBIN 30.1 pg (27.0-33.0); MEAN CORPUSCULAR HGB CONC 33.7 g/dl (32.0-36.5); MEAN CORPUSCULAR VOLUME 89.3 fl (80.0-96.0); MONO # 0.5 10^3/uL (0.0-0.8); MONO % 5.6 % (2.0-8.0); NEUTROPHILS # 6.5 10^3/uL (1.5-8.5); NEUTROPHILS % 74.4 % (36.0-66.0); PLATELET COUNT, AUTOMATED 200 10^3/uL (150-450); RED BLOOD COUNT 4.68 10^6/uL (4.00-5.40); WHITE BLOOD COUNT 8.8 10^3/uL (4.0-10.0)
[2023-11-29 15:55] LABS: BLOOD UREA NITROGEN 8 MG/DL (9-23); CALCIUM LEVEL 9.1 MG/DL (8.5-10.1); CARBON DIOXIDE LEVEL 26 MMOL/L (20-31); CHLORIDE LEVEL 106 MMOL/L (98-107); CREATININE FOR GFR 0.63 MG/DL (0.55-1.30); GLOMERULAR FILTRATION RATE > 60.0 (>60); GLUCOSE, FASTING 92 MG/DL (60-100); SODIUM LEVEL 139 MMOL/L (136-145)
[2023-11-29 16:17] LABS: HCG, SERUM QUANTITATIVE 19035.1 MIU/ML (<4.2)
[2023-11-29 17:19] VITALS: BP 133/82; TEMP 97.6; O2SAT 100
[2023-11-29 17:19] LABS: APPEARANCE, URINE CLEAR (CLEAR); BACTERIA, URINE AUTO NEGATIVE (NEGATIVE); BILIRUBIN, URINE AUTO NEGATIVE (NEGATIVE); BLOOD, URINE BLOOD 1+ (NEGATIVE); COLOR, URINE STRAW (YELLOW); GLUCOSE, URINE (UA) AUTO NEGATIVE (NEGATIVE); KETONE, URINE AUTO NEGATIVE (NEGATIVE); LEUKOCYTE ESTERASE, URINE AUTO NEGATIVE (NEGATIVE); MUCUS, URINE SMALL (NEGATIVE); NITRITE, URINE AUTO NEGATIVE (NEGATIVE); PROTEIN, URINE AUTO NEGATIVE (NEGATIVE); RBC, URINE AUTO 0 /HPF (0-3); SPECIFIC GRAVITY URINE AUTO 1.004 (1.002-1.035); SQUAMOUS EPITHELIAL CELL UR AU 1 /HPF (0-6); UROBILINOGEN, URINE AUTO 0.2 mg/dL (0.0-2.0); WBC, URINE AUTO 0 /HPF (0-3)
== END 2023-11-29 17:21 | disposition home or self-care (01) ==
LOC: M ED 14:38
DX: O03.9 Complete or unspecified spontaneous abortion without complication (principal); Z3A.08 8 weeks gestation of pregnancy

== ENCOUNTER → 2023-12-01 | Outpatient (CLI) | payer OTHER | LOC: M PLALAB 11:34 | PROVIDERS: ATTEND Advanced Practice Midwife | DX: O20.9 Hemorrhage in early pregnancy, unspecified (principal) ==

== ENCOUNTER 2023-12-04 20:11 | Emergency (ER) | payer OTHER ==
[~2023-12-04] VITALS: Ht 165.1 cm; Wt 68.1 kg
[2023-12-04 20:12] VITALS: BP 131/81; TEMP 98.9; O2SAT 100
[2023-12-04 20:59] LABS: BASO # 0.1 10^3/uL (0.0-0.2); BASO % 0.8 % (0.0-1.0); EOS # 0.1 10^3/uL (0.0-0.5); EOS % 1.2 % (0.0-3.0); HEMATOCRIT 38.3 % (36.0-47.0); LYMPH # 2.3 10^3/uL (1.5-5.0); LYMPH % 34.6 % (24.0-44.0); MEAN CORPUSCULAR HEMOGLOBIN 30.4 pg (27.0-33.0); MEAN CORPUSCULAR HGB CONC 33.9 g/dl (32.0-36.5); MEAN CORPUSCULAR VOLUME 89.5 fl (80.0-96.0); MONO # 0.4 10^3/uL (0.0-0.8); MONO % 5.4 % (2.0-8.0); NEUTROPHILS # 3.8 10^3/uL (1.5-8.5); NEUTROPHILS % 57.7 % (36.0-66.0); PLATELET COUNT, AUTOMATED 231 10^3/uL (150-450); RED BLOOD COUNT 4.28 10^6/uL (4.00-5.40); WHITE BLOOD COUNT 6.6 10^3/uL (4.0-10.0)
[2023-12-04 21:26] LABS: CK-MB VALUE MASS < 1.0 NG/ML (<3.6)
[2023-12-04 21:28] LABS: HCG, SERUM QUANTITATIVE 384.6 MIU/ML (<4.2)
[2023-12-04 21:29] LABS: BLOOD UREA NITROGEN 12 MG/DL (9-23); CALCIUM LEVEL 9.4 MG/DL (8.5-10.1); CARBON DIOXIDE LEVEL 26 MMOL/L (20-31); CHLORIDE LEVEL 108 MMOL/L (98-107); CREATININE FOR GFR 0.71 MG/DL (0.55-1.30); GLOMERULAR FILTRATION RATE > 60.0 (>60); GLUCOSE, FASTING 93 MG/DL (60-100); SODIUM LEVEL 140 MMOL/L (136-145)
[2023-12-04 21:32] LABS: THYROID STIMULATING HORMONE 2.189 uIU/ML (0.55-4.78)
[2023-12-04 21:35] LABS: CPK CREATINE PHOSPHOKINASE 63 U/L (34-145); MB/CK RELATIVE INDEX 1.58 (< OR =4)
== END 2023-12-04 22:30 | disposition left against medical advice (07) ==
LOC: M ED 20:11
DX: Z53.21 Procedure and treatment not carried out due to patient leaving prior to being seen by health care provider (principal)

== ENCOUNTER → 2023-12-04 | Outpatient (CLI) | payer OTHER | LOC: M PLALAB 11:19 | PROVIDERS: ATTEND Advanced Practice Midwife | DX: O02.1 Missed abortion (principal) ==

== ENCOUNTER 2023-12-05 10:56 | Emergency (ER) | payer OTHER ==
[~2023-12-05] VITALS: Ht 165.1 cm; Wt 67.8 kg
[2023-12-05 13:01] LABS: BASO # 0.1 10^3/uL (0.0-0.2); EOS # 0.1 10^3/uL (0.0-0.5); EOS % 0.9 % (0.0-3.0); HEMATOCRIT 37.8 % (36.0-47.0); LYMPH # 1.5 10^3/uL (1.5-5.0); LYMPH % 24.7 % (24.0-44.0); MEAN CORPUSCULAR HEMOGLOBIN 30.8 pg (27.0-33.0); MEAN CORPUSCULAR HGB CONC 34.4 g/dl (32.0-36.5); MEAN CORPUSCULAR VOLUME 89.6 fl (80.0-96.0); MONO # 0.3 10^3/uL (0.0-0.8); MONO % 5.3 % (2.0-8.0); NEUTROPHILS % 67.8 % (36.0-66.0); PLATELET COUNT, AUTOMATED 204 10^3/uL (150-450); RED BLOOD COUNT 4.22 10^6/uL (4.00-5.40); WHITE BLOOD COUNT 5.9 10^3/uL (4.0-10.0)
[2023-12-05 13:19] LABS: INR 1.08; PARTIAL THROMBOPLASTIN TIME 24.7 SECONDS (24.8-34.2); PROTHROMBIN TIME 13.7 SECONDS (12.5-14.5)
[2023-12-05 13:22] LABS: CK-MB VALUE MASS < 1.0 NG/ML (<3.6); HCG, SERUM QUANTITATIVE 286.4 MIU/ML (<4.2)
[2023-12-05 13:23] LABS: CPK CREATINE PHOSPHOKINASE 53 U/L (34-145); MB/CK RELATIVE INDEX 1.88 (< OR =4)
[2023-12-05 13:24] LABS: BLOOD UREA NITROGEN 11 MG/DL (9-23); CALCIUM LEVEL 9.3 MG/DL (8.5-10.1); CARBON DIOXIDE LEVEL 27 MMOL/L (20-31); CHLORIDE LEVEL 108 MMOL/L (98-107); GLOMERULAR FILTRATION RATE > 60.0 (>60); GLUCOSE, FASTING 90 MG/DL (60-100); POTASSIUM SERUM 4.1 MMOL/L (3.5-5.1); SODIUM LEVEL 142 MMOL/L (136-145)
[2023-12-05 14:20] VITALS: BP 117/68; TEMP 98.7; O2SAT 99
== END 2023-12-05 14:26 | disposition home or self-care (01) ==
LOC: M ED 10:56
DX: M94.0 Chondrocostal junction syndrome [Tietze] (principal); F41.0 Panic disorder [episodic paroxysmal anxiety]; K21.9 Gastro-esophageal reflux disease without esophagitis

== ENCOUNTER → 2023-12-16 | Outpatient (CLI) | payer OTHER ==
[2023-12-16 13:43] LABS: PERCENT SATURATION 14.4 % (13.2-45.0)
[2023-12-16 13:48] LABS: FOLATE 23.48 NG/ML (>5.4)
== END ==
LOC: M LAB 12:31
PROVIDERS: ATTEND Nurse Practitioner Family
DX: R20.2 Paresthesia of skin (principal)

== ENCOUNTER 2024-04-07 03:18 | Emergency (ER) | payer OTHER ==
[~2024-04-07] VITALS: Ht 165.1 cm; Wt 63.0 kg
[2024-04-07 04:12] LABS: BASO % 0.4 % (0.0-1.0); EOS % 0.2 % (0.0-3.0); HEMATOCRIT 38.9 % (36.0-47.0); HEMOGLOBIN 13.2 g/dl (12.0-15.5); LYMPH # 0.5 10^3/uL (1.5-5.0); LYMPH % 5.7 % (24.0-44.0); MEAN CORPUSCULAR HEMOGLOBIN 29.6 pg (27.0-33.0); MEAN CORPUSCULAR HGB CONC 33.9 g/dl (32.0-36.5); MEAN CORPUSCULAR VOLUME 87.2 fl (80.0-96.0); MONO # 0.6 10^3/uL (0.0-0.8); MONO % 7.5 % (2.0-8.0); NEUTROPHILS # 7.1 10^3/uL (1.5-8.5); PLATELET COUNT, AUTOMATED 207 10^3/uL (150-450); RED BLOOD COUNT 4.46 10^6/uL (4.00-5.40); WHITE BLOOD COUNT 8.3 10^3/uL (4.0-10.0)
[2024-04-07 04:27] LABS: INR 0.96; PROTHROMBIN TIME 13.1 SECONDS (12.5-14.5)
[2024-04-07 04:36] LABS: CK-MB VALUE MASS < 1.0 NG/ML (<3.6); LIPASE 35 U/L (12-53)
[2024-04-07 04:38] LABS: ALBUMIN 3.9 G/DL (3.2-5.2); ALKALINE PHOSPHATASE 43 U/L (35-104); ALT/SGPT 17 U/L (7.0-40); AST/SGOT 9 U/L (<34); BILIRUBIN,DIRECT 0.1 MG/DL (<0.4); BILIRUBIN,TOTAL 0.3 MG/DL (0.3-1.2); BLOOD UREA NITROGEN 9 MG/DL (9-23); CALCIUM LEVEL 9.3 MG/DL (8.5-10.1); CARBON DIOXIDE LEVEL 24 MMOL/L (20-31); CHLORIDE LEVEL 104 MMOL/L (98-107); CPK CREATINE PHOSPHOKINASE 46 U/L (34-145); CREATININE FOR GFR 0.67 MG/DL (0.55-1.30); GLOMERULAR FILTRATION RATE > 60.0 (>60); GLUCOSE, FASTING 95 MG/DL (60-100); MB/CK RELATIVE INDEX 2.17 (< OR =4); POTASSIUM SERUM 3.5 MMOL/L (3.5-5.1); SODIUM LEVEL 137 MMOL/L (136-145); TOTAL PROTEIN 7.2 G/DL (5.7-8.2)
[2024-04-07] MEDS: ACETAMINOPHEN 325 MG TAB PO ONE (07:50)
[2024-04-07 10:25] VITALS: BP 108/57; TEMP 98; O2SAT 99
== END 2024-04-07 10:30 | disposition home or self-care (01) ==
LOC: M ED 03:18
DX: O98.511 Other viral diseases complicating pregnancy, first trimester (principal); U07.1 COVID-19; G90.A Postural orthostatic tachycardia syndrome [POTS]; Z3A.01 Less than 8 weeks gestation of pregnancy

== ENCOUNTER → 2024-05-26 | Outpatient (CLI) | payer OTHER ==
[2024-05-26 12:07] LABS: BASO % 0.8 % (0.0-1.0); EOS # 0.1 10^3/uL (0.0-0.5); HEMATOCRIT 40.5 % (36.0-47.0); HEMOGLOBIN 13.2 g/dl (12.0-15.5); LYMPH # 1.7 10^3/uL (1.5-5.0); MEAN CORPUSCULAR HEMOGLOBIN 28.6 pg (27.0-33.0); MEAN CORPUSCULAR HGB CONC 32.6 g/dl (32.0-36.5); MEAN CORPUSCULAR VOLUME 87.9 fl (80.0-96.0); MONO # 0.2 10^3/uL (0.0-0.8); NEUTROPHILS # 2.8 10^3/uL (1.5-8.5); PLATELET COUNT, AUTOMATED 202 10^3/uL (150-450); RED BLOOD COUNT 4.61 10^6/uL (4.00-5.40); WHITE BLOOD COUNT 4.8 10^3/uL (4.0-10.0)
[2024-05-26 12:40] LABS: LIPASE 38 U/L (12-53)
[2024-05-26 12:43] LABS: ALBUMIN 4.3 G/DL (3.2-5.2); ALKALINE PHOSPHATASE 49 U/L (35-104); ALT/SGPT 14 U/L (7.0-40); AST/SGOT 11 U/L (<34); BILIRUBIN,TOTAL 0.4 MG/DL (0.3-1.2); BLOOD UREA NITROGEN 18 MG/DL (9-23); CALCIUM LEVEL 9.8 MG/DL (8.5-10.1); CARBON DIOXIDE LEVEL 28 MMOL/L (20-31); CHLORIDE LEVEL 104 MMOL/L (98-107); CREATININE FOR GFR 0.76 MG/DL (0.55-1.30); GLOMERULAR FILTRATION RATE > 60.0 (>60); GLUCOSE, FASTING 89 MG/DL (60-100); SODIUM LEVEL 143 MMOL/L (136-145); TOTAL PROTEIN 7.9 G/DL (5.7-8.2)
== END ==
LOC: M WUC 10:33
PROVIDERS: ATTEND Student in an Organized Health Care Education/Training Program
DX: R10.814 Left lower quadrant abdominal tenderness (principal)